=== PATIENT | female | born 1945 | race African-American/Black ===

== ENCOUNTER 2019-11-07 00:26 | Inpatient (IN) | payer MEDICARE, MEDICAID ==
[~2019-11-07] VITALS: Ht 172.7 cm; Wt 62.6 kg
[2019-11-07 01:39] LABS: CHLORIDE 103 mEq/L (98-107)
[2019-11-07 01:40] LABS: BASOPHILS % 0.6 % (0.0-2.0); EOSINOPHILS % 0.2 % (0.0-5.0); HEMATOCRIT. 31.4 % (36.0-48.0); HEMOGLOBIN. 10.4 g/dL (12.0-16.0); LYMPHOCYTES % 11.4 % (20.0-50.0); MEAN CORPUSCULAR HEMOGLOBIN 33.1 pg (28.0-32.0); MEAN CORPUSCULAR VOLUME 100.4 fL (81.0-99.0); MEAN PLATELET VOLUME 9.9 fl (7.4-10.4); MONOCYTES % 6.6 % (2.0-8.0); NEUTROPHILS % 81.2 % (40.0-76.0); PLATELET 117 x1000/uL (130-400); RED BLOOD CELL COUNT 3.13 mill/uL (4.2-5.4); RED CELL DISTRIBUTION WIDTH 17.3 % (11.6-14.6)
[2019-11-07 09:45] VITALS: BP 140/76
[2019-11-07 10:00] VITALS: BP 140/76
[2019-11-07 12:00] VITALS: BP 147/77
[2019-11-07] MEDS ORDERED: ONDANSETRON HCL 4MG/2ML INJ IV PRN (12:30)
[2019-11-07] MEDS ORDERED: ACETAMINOPHEN 325MG TABLET PO PRN (12:30)
[2019-11-07] MEDS ORDERED: DOCUSATE SODIUM 100MG CAPSULE PO PRN (12:30)
[2019-11-07] MEDS ORDERED: MORPHINE SULFATE 2 MG/ML CPJ (NOT FOR IM USE) IV PRN (12:30)
[2019-11-07] MEDS ORDERED: CLONIDINE 0.1MG TABLET PO PRN (12:30)
[2019-11-07] MEDS: SODIUM CHLORIDE 0.45% 1,000 ML IV SCH (12:54)
[2019-11-07] MEDS ORDERED: POTASSIUM CHLORIDE 20MEQ TABLET SR PO NR (13:45)
[2019-11-07] MEDS ORDERED: HYDROCODONE/ACETAMINOPHEN 5/325MG TABLET PO PRN (13:45)
[2019-11-07 16:00] VITALS: BP 153/81
[2019-11-07 20:00] VITALS: BP 131/78
[2019-11-07] MEDS: AMLODIPINE 5MG TABLET PO SCH (21:41)
[2019-11-08] VITALS: BP_SYST 114; BP_SYST 124; BP_SYST 146; BP_DIAS 73; BP_DIAS 82; BP_DIAS 86
[2019-11-08 04:00] VITALS: BP 136/80
[2019-11-08 06:35] LABS: CHLORIDE 105 mEq/L (98-107)
[2019-11-08 06:37] LABS: BASOPHILS % 0.1 % (0.0-2.0); EOSINOPHILS % 0.7 % (0.0-5.0); HEMATOCRIT. 26.3 % (36.0-48.0); HEMOGLOBIN. 8.8 g/dL (12.0-16.0); LYMPHOCYTES % 12.7 % (20.0-50.0); MEAN CORPUSCULAR HEMOGLOBIN 34.1 pg (28.0-32.0); MEAN CORPUSCULAR VOLUME 101.5 fL (81.0-99.0); MEAN PLATELET VOLUME 9.1 fl (7.4-10.4); MONOCYTES % 5.9 % (2.0-8.0); NEUTROPHILS % 80.6 % (40.0-76.0); PLATELET 86 x1000/uL (130-400); RED BLOOD CELL COUNT 2.59 mill/uL (4.2-5.4); RED CELL DISTRIBUTION WIDTH 16.8 % (11.6-14.6)
[2019-11-08 06:45] LABS: LDL CHOLESTEROL 87 mg/dL (5-100)
[2019-11-08 06:47] LABS: HDL CHOLESTEROL 149 mg/dL (40-59)
[2019-11-08] MEDS: SODIUM CHLORIDE 0.45% 1,000 ML IV SCH ×2 (06:55→21:50)
[2019-11-08 07:19] LABS: VITAMIN B12 SERUM 321 pg/mL (211-911)
[2019-11-08 08:00] VITALS: BP 124/79
[2019-11-08] MEDS: AMLODIPINE 5MG TABLET PO SCH ×2 (09:13→21:49)
[2019-11-08] MEDS: CLONIDINE 0.1MG TABLET PO SCH ×2 (09:13→21:49)
[2019-11-08 10:17] LABS: TOTAL IRON BINDING CAPACITY 215 ug/dL (250-450)
[2019-11-08 11:02] LABS: HEMATOCRIT 25.8 % (36.0-48.0); HEMOGLOBIN 8.6 g/dL (12.0-16.0)
[2019-11-08 12:00] VITALS: BP 110/69
[2019-11-08 16:00] VITALS: BP 80/44
[2019-11-08 19:37] LABS: CLARITY URINE CLEAR (CLEAR); COLOR URINE YELLOW (YELLOW); KETONES URINE 2+ (NEGATIVE); LEUKOCYTE ESTERASE URINE TRACE (NEGATIVE); NITRITE URINE NEGATIVE (NEGATIVE); OCCULT BLOOD URINE NEGATIVE (NEGATIVE); PROTEIN URINE 1+ (NEGATIVE); SPECIFIC GRAVITY URINE 1.014 (1.005-1.030)
[2019-11-08 20:00] VITALS: BP 115/71
[2019-11-08 20:24] LABS: *AMPHETAMINES SCREEN URINE NEGATIVE (NEGATIVE); *BARBITURATES SCREEN URINE NEGATIVE (NEGATIVE)
[2019-11-08 20:25] LABS: *BENZODIAZEPINES SCREEN URINE NEGATIVE (NEGATIVE); *COCAINE SCREEN URINE NEGATIVE (NEGATIVE); CANNABINOID URINE SCREEN PRESUMTIVE POSITIVE (NEGATIVE); METHADONE URINE SCREEN NEGATIVE (NEGATIVE); OPIATES URINE SCREEN PRESUMTIVE POSITIVE (NEGATIVE); PHENCYCLIDINE URINE SCREEN NEGATIVE (NEGATIVE)
[2019-11-09] VITALS: BP 113/75
[2019-11-09 04:00] VITALS: BP 120/72
[2019-11-09 07:21] LABS: CHLORIDE 104 mEq/L (98-107)
[2019-11-09 07:35] LABS: BASOPHILS % 0.2 % (0.0-2.0); EOSINOPHILS % 0.9 % (0.0-5.0); HEMATOCRIT. 25.6 % (36.0-48.0); HEMOGLOBIN. 8.5 g/dL (12.0-16.0); MEAN CORPUSCULAR HEMOGLOBIN 34.2 pg (28.0-32.0); MEAN CORPUSCULAR VOLUME 102.7 fL (81.0-99.0); MEAN PLATELET VOLUME 10.2 fl (7.4-10.4); MONOCYTES % 8.7 % (2.0-8.0); NEUTROPHILS % 75.2 % (40.0-76.0); PLATELET 97 x1000/uL (130-400); RED BLOOD CELL COUNT 2.49 mill/uL (4.2-5.4); RED CELL DISTRIBUTION WIDTH 16.8 % (11.6-14.6)
[2019-11-09 08:00] VITALS: BP 109/67
[2019-11-09] MEDS: CLONIDINE 0.1MG TABLET PO SCH ×2 (09:00→22:20)
[2019-11-09] MEDS: AMLODIPINE 5MG TABLET PO SCH ×2 (09:00→22:20)
[2019-11-09] MEDS ORDERED: CEFTRIAXONE 1 G PREMIX 50 ML IV SCH (11:15)
[2019-11-09 12:00] VITALS: BP 133/75
[2019-11-09] MEDS ORDERED: CEFTRIAXONE 2 G in DEXTROSE 5% WATER 50 ML IV SCH (12:00)
[2019-11-09] MEDS: CEFTRIAXONE 1,000 MG in DEXTROSE 5% WATER 50 ML IV SCH (12:34)
[2019-11-09] MEDS: FERROUS SULFATE 325MG TABLET PO SCH ×2 (14:26→17:46)
[2019-11-09 16:00] VITALS: BP 129/69
[2019-11-09] MEDS: SODIUM CHLORIDE 0.45% 1,000 ML IV SCH (17:46)
[2019-11-10] VITALS (8 sets, daily range): BP systolic 107–141; BP diastolic 74–85
[2019-11-10] MEDS: SODIUM CHLORIDE 0.45% 1,000 ML IV SCH ×2 (06:14→20:53)
[2019-11-10 08:39] LABS: HEMATOCRIT. 31.4 % (36.0-48.0); HEMOGLOBIN. 10.8 g/dL (12.0-16.0); MEAN CORPUSCULAR HEMOGLOBIN 33.9 pg (28.0-32.0); MEAN CORPUSCULAR VOLUME 98.5 fL (81.0-99.0); MEAN PLATELET VOLUME 8.2 fl (7.4-10.4); PLATELET 123 x1000/uL (130-400); RED BLOOD CELL COUNT 3.19 mill/uL (4.2-5.4); RED CELL DISTRIBUTION WIDTH 17.7 % (11.6-14.6)
[2019-11-10 08:50] LABS: PARTIAL THROMBOPLASTIN TIME 22.7 sec (23.4-31.0); PROTHROMBIN TIME 10.2 sec (9.6-11.0)
[2019-11-10 08:57] LABS: CHLORIDE 105 mEq/L (98-107)
[2019-11-10] MEDS: CLONIDINE 0.1MG TABLET PO SCH ×2 (09:00→20:50)
[2019-11-10] MEDS: AMLODIPINE 5MG TABLET PO SCH ×2 (09:00→20:50)
[2019-11-10] MEDS: FERROUS SULFATE 325MG TABLET PO SCH ×3 (09:03→17:14)
[2019-11-10] MEDS: CEFTRIAXONE 1,000 MG in DEXTROSE 5% WATER 50 ML IV SCH (12:58)
[2019-11-10 17:42] LABS: PLATELET ESTIMATE DECREASED
[2019-11-10] MEDS ORDERED: ZOLPIDEM TARTRATE 5MG TABLET PO PRN (21:00)
[2019-11-11] VITALS: BP 107/84
[2019-11-11 04:00] VITALS: BP 101/69
[2019-11-11 07:05] LABS: CHLORIDE 105 mEq/L (98-107)
[2019-11-11 07:13] LABS: HEMATOCRIT. 34.4 % (36.0-48.0); HEMOGLOBIN. 11.5 g/dL (12.0-16.0); MEAN CORPUSCULAR HEMOGLOBIN 33.1 pg (28.0-32.0); MEAN CORPUSCULAR VOLUME 99.1 fL (81.0-99.0); MEAN PLATELET VOLUME 8.9 fl (7.4-10.4); PLATELET 146 x1000/uL (130-400); RED BLOOD CELL COUNT 3.47 mill/uL (4.2-5.4); RED CELL DISTRIBUTION WIDTH 18.1 % (11.6-14.6)
[2019-11-11] MEDS ORDERED: POTASSIUM CHLORIDE 20MEQ TABLET SR PO NR (07:30)
[2019-11-11 08:00] VITALS: BP 109/75
[2019-11-11] MEDS: FERROUS SULFATE 325MG TABLET PO SCH ×3 (08:19→18:23)
[2019-11-11] MEDS: AMLODIPINE 5MG TABLET PO SCH ×2 (08:20→21:23)
[2019-11-11] MEDS: CLONIDINE 0.1MG TABLET PO SCH ×2 (08:20→21:23)
[2019-11-11 12:00] VITALS: BP 121/74
[2019-11-11] MEDS: CEFTRIAXONE 1,000 MG in DEXTROSE 5% WATER 50 ML IV SCH (12:51)
[2019-11-11 16:00] VITALS: BP 126/79
[2019-11-11] MEDS: SODIUM CHLORIDE 0.45% 1,000 ML IV SCH (18:25)
[2019-11-11 20:00] VITALS: BP 136/64
[2019-11-11 23:21] LABS: NUCLEATED RED BLOOD CELLS 1 /100 WBC; PLATELET ESTIMATE NORMAL
[2019-11-12] VITALS: BP 109/66
[2019-11-12 04:00] VITALS: BP 119/81
[2019-11-12 06:32] LABS: HEMATOCRIT. 33.9 % (36.0-48.0); HEMOGLOBIN. 11.3 g/dL (12.0-16.0); MEAN CORPUSCULAR VOLUME 99.1 fL (81.0-99.0); MEAN PLATELET VOLUME 8.5 fl (7.4-10.4); PLATELET 182 x1000/uL (130-400); RED BLOOD CELL COUNT 3.43 mill/uL (4.2-5.4); RED CELL DISTRIBUTION WIDTH 17.6 % (11.6-14.6)
[2019-11-12 06:40] LABS: CHLORIDE 105 mEq/L (98-107)
[2019-11-12] MEDS: FERROUS SULFATE 325MG TABLET PO SCH ×2 (06:45→12:17)
[2019-11-12 08:00] VITALS: BP 123/74
[2019-11-12] MEDS: CLONIDINE 0.1MG TABLET PO SCH (08:57)
[2019-11-12] MEDS: AMLODIPINE 5MG TABLET PO SCH (08:57)
[2019-11-12] MEDS ORDERED: ZINC SULFATE 220 MG ( 50 ) CAPSULE PO SCH (09:00)
[2019-11-12] MEDS ORDERED: ASCORBIC ACID 500 MG TABLET PO SCH (09:00)
[2019-11-12] MEDS: SODIUM CHLORIDE 0.45% 1,000 ML IV SCH (09:08)
[2019-11-12 11:58] LABS: PLATELET ESTIMATE NORMAL
[2019-11-12 12:00] VITALS: BP 125/72
[2019-11-12] MEDS: CEFTRIAXONE 1,000 MG in DEXTROSE 5% WATER 50 ML IV SCH (12:14)
[2019-11-12 14:37] VITALS: BP 125/72
== END 2019-11-12 16:16 | disposition home or self-care (01) | DRG 562 ==
LOC: ER 00:26 → 6EST 03:38 → ENRESERV 07:48 → 7WST 11-09 12:42 → 5WST 11-11 23:33
PROVIDERS: ADMIT Internal Medicine Rheumatology; ATTEND Internal Medicine Rheumatology
PROC: 30233N1 Transfusion of Nonautologous Red Blood Cells into Peripheral Vein, Percutaneous Approach (ICD-10-PCS; principal; 2019-11-10)
DX: S42.212A Unspecified displaced fracture of surgical neck of left humerus, initial encounter for closed fracture (principal); S72.92XA Unspecified fracture of left femur, initial encounter for closed fracture; E43 Unspecified severe protein-calorie malnutrition; U07.1 COVID-19; N39.0 Urinary tract infection, site not specified; M06.9 Rheumatoid arthritis, unspecified; R29.6 Repeated falls; D69.6 Thrombocytopenia, unspecified; E78.5 Hyperlipidemia, unspecified; E86.0 Dehydration; E87.6 Hypokalemia; F17.210 Nicotine dependence, cigarettes, uncomplicated; I11.9 Hypertensive heart disease without heart failure; D50.9 Iron deficiency anemia, unspecified; F12.90 Cannabis use, unspecified, uncomplicated; M19.90 Unspecified osteoarthritis, unspecified site; J44.9 Chronic obstructive pulmonary disease, unspecified; K21.9 Gastro-esophageal reflux disease without esophagitis; M85.80 Other specified disorders of bone density and structure, unspecified site; Z80.1 Family history of malignant neoplasm of trachea, bronchus and lung; E78.00 Pure hypercholesterolemia, unspecified; R00.0 Tachycardia, unspecified; J98.8 Other specified respiratory disorders; Z82.49 Family history of ischemic heart disease and other diseases of the circulatory system; Z91.81 History of falling; Z79.899 Other long term (current) drug therapy; Y93.89 Activity, other specified; Y99.8 Other external cause status; W10.9XXA Fall (on) (from) unspecified stairs and steps, initial encounter; Y92.009 Unspecified place in unspecified non-institutional (private) residence as the place of occurrence of the external cause
CPT/HCPCS: 36415; 71045; 73060; 73090; 73110; 80048; 80053; 80061; 80305; 81003; 82270; 82607; 82728; 83540; 83550; 83735; 83880; 84484; 85014; 85018; 85025; 86850; 86900; 86920; 87426; 87635; 93005; 93306; 93880; 93970; 96374; 97116; 97162; 97164; 99285; J0696; J2270; J7060; P9016; U0003-CS

== ENCOUNTER 2023-10-23 03:33 | Emergency (ER) | payer BC, MEDICAID ==
[~2023-10-23] VITALS: Ht 170.2 cm; Wt 49.5 kg
[~2023-10-23 03:33] MED LIST: OMEP40CA20 MT; POLY119P2 MT
[2023-10-23 03:39] VITALS: O2SAT 94
[2023-10-23 03:40] VITALS: BP 133/100; PULSE 128; RESP 18; O2SAT 97
[2023-10-23] MEDS ORDERED: ACET-2708 MT (04:13)
[2023-10-23] MEDS ORDERED: ACETAMINOPHEN 325MG TABLET PO ONE (04:15)
[2023-10-23 05:46] VITALS: TEMP 98.3
[2023-10-23] MEDS: ACETAMINOPHEN 325MG TABLET PO NR (05:46)
== END 2023-10-23 06:04 | disposition home or self-care (01) ==
LOC: ER 03:33
DX: S69.82XA Other specified injuries of left wrist, hand and finger(s), initial encounter (principal); E11.9 Type 2 diabetes mellitus without complications; I10 Essential (primary) hypertension; E03.9 Hypothyroidism, unspecified; X58.XXXA Exposure to other specified factors, initial encounter; Y93.89 Activity, other specified; Y92.89 Other specified places as the place of occurrence of the external cause; Y99.8 Other external cause status
CPT/HCPCS: 29125; 73130; 99283